=== PATIENT | female | born 1985 | race Two or more races ===

== ENCOUNTER 2022-02-16 04:28 | Inpatient (IN) | payer OTHER ==
[~2022-02-16] VITALS: Ht 165.1 cm; Wt 2.7 kg
[2022-02-16] MEDS ORDERED: NIFEDIPINE20 MG PO (06:39)
[2022-02-16] MEDS ORDERED: PRENATAL CAPLE1 EAC1 PO (06:39)
[2022-02-16] MEDS ORDERED: LOVENOX40 MG/0.4 SUBCUTANEO (06:40)
== END 2022-02-18 14:04 | disposition home or self-care (01) | DRG 785 ==
LOC: LDR 04:28 → EDBD 04:28 → O/R 04:28 → OB/GYN 12:33
PROVIDERS: ADMIT Specialist; ATTEND Specialist
PROC: 0UB70ZZ Excision of Bilateral Fallopian Tubes, Open Approach (ICD-10-PCS; 2022-02-16)
PROC: 4A1HXCZ Monitoring of Products of Conception, Cardiac Rate, External Approach (ICD-10-PCS; 2022-02-16)
PROC: 10D00Z1 Extraction of Products of Conception, Low, Open Approach (ICD-10-PCS; principal; 2022-02-16 11:15)
DX: O34.211 Maternal care for low transverse scar from previous cesarean delivery (principal); Z30.2 Encounter for sterilization; Z3A.38 38 weeks gestation of pregnancy; Z37.0 Single live birth; Z20.822 Contact with and (suspected) exposure to COVID-19